=== PATIENT | female | born 1990 ===

== ENCOUNTER 2025-04-16 03:39 | Outpatient (CLI) | payer MEDICAID, SELFPAY ==
--- NOTE | 2025-04-16 | DI.US_ITS ---
Exam(s) US OB 2-3 TRIMESTER EXAM: US OB 2-3 TRIMESTER CLINICAL HISTORY: ANATOMY SCAN Z34.92. TECHNIQUE: Transabdominal obstetrical ultrasound performed. COMPARISON: No exams were available for comparison FINDINGS: Number of fetuses: 1 position: TRANS LT heart rate: 137bpm Placental location: There is a grade 1 anterior placenta. The placental tip is 5.6 cm from the internal os. No evidence of previa. Amniotic fluid index: Amount of fluid is within normal limits. ANATOMICAL SURVEY: Within normal limits. BIOMETRIC DATA: BPD: 5.33cm, 22weeks 1day HC: 19.59cm, 21weeks 6days AC: 16.41cm, 21weeks 3days FL: 3.3cm, 20weeks 2days Cisterna magna: 5mm Cerebellum: 2.16cm Lateral ventricle: 0.7 cm. EFW: 397.7g, 0.91lb, 65.5% Composite Age: 21weeks 3days YULY: 08/24/2027 Heart Rate: 137bpm ANATOMICAL SURVEY: Four-chambered heart: Unremarkable. RVOT: Unremarkable. LVOT: Unremarkable. Left-sided stomach: Unremarkable. urinary bladder: Unremarkable. Bilateral kidneys: Unremarkable. Three-vessel cord: Unremarkable. Cord insertion: Unremarkable. Posterior fossa: Unremarkable. ventricles: Unremarkable. nose/lips: Unremarkable. Palate: Unremarkable. spine: Unremarkable. Two arms and two legs: Unremarkable. IMPRESSION: 1. Single live intrauterine gestation as above. 2. Normal anatomic survey. DATA REPOSITORY:
== END 2025-04-16 03:59 ==
PROVIDERS: PCP Acupuncturist; Visit Provider Midwife
DX: Z34.92 Encounter for supervision of normal pregnancy, unspecified, second trimester (principal); Z3A.22 22 weeks gestation of pregnancy
CPT/HCPCS: 76805